=== PATIENT | female | born 1990 | race American Indian/Alaskan Native ===

== ENCOUNTER 2021-06-01 12:46 | Emergency (ER) | payer MEDICAID ==
[2021-06-01 13:07] VITALS: BP 140/85
--- NOTE | 2021-06-01 13:13 | Emergency Department Report ---
Blank Doc - Documentation Documentation: 30-year-old female that presents with chest pain, vaginal bleeding, and elevated BP. Stated is about 4 weeks but is not sure. 1- This is a initial triage assessment/medical screening only. Full assessment and work-up will be completed once the patient is in proper hospital gown, ED bed and in a private room setting. This initial assessment/diagnostic orders/clinical plan/ treatment(s) is/are subject to change based on pt's health status, clinical progression and re-assessment by fellow clinical providers in the ED. Further treatment and workup at subsequent clinical providers discretion. Patient/guardians urged not to elope from ED as their condition may be serious if not clinically assessed and managed. 2-cardiac workup 3-labs r/o
[2021-06-01 13:55] LABS: Basophils % (Auto) 0.3 % (0.0-1.8); Eosinophils # (Auto) 0.1 K/mm3 (0.0-0.4); Eosinophils % (Auto) 0.8 % (0.0-4.3); Lymphocytes # (Auto) 2.1 K/mm3 (1.2-5.4); Lymphocytes % (Auto) 25.3 % (13.4-35.0); Monocytes # (Auto) 0.4 K/mm3 (0.0-0.8); Monocytes % (Auto) 4.4 % (0.0-7.3)
[2021-06-01 13:58] LABS: Alanine Aminotransferase 18 units/L (7-56); Albumin 4.4 g/dL (3.9-5); Blood Urea Nitrogen 5 mg/dL (7-17); Calcium 9.1 mg/dL (8.4-10.2); Hemolysis Index 4
[2021-06-01 14:03] LABS: BUN/Creatinine Ratio 13
[2021-06-01 14:11] LABS: Hematocrit 36.8 % (30.3-42.9); Mean Corpuscular HGB Conc 33 % (30-34); Mean Corpuscular Volume 72 fl (79-97); Platelet Count 399 K/mm3 (140-440); Red Blood Count 5.12 M/mm3 (3.65-5.03); Red Cell Distribution Width 15.8 % (13.2-15.2)
[2021-06-01 14:30] LABS: INR 0.95 (0.87-1.13)
[2021-06-01 14:31] LABS: Partial Thromboplastin Time 33.1 Sec. (24.2-36.6)
--- NOTE | 2021-06-01 15:45 | XRay Report ---
XR chest routine 2V INDICATION / CLINICAL INFORMATION: Chest Pain. COMPARISON: None available. FINDINGS: SUPPORT DEVICES: None. HEART /PULMONARY VASCULATURE: No significant abnormality. LUNGS / PLEURA: No significant pulmonary or pleural abnormality. No pneumothorax. ADDITIONAL FINDINGS: No significant additional findings. IMPRESSION: 1. No acute findings. Signer Name: Travis Vargas MD Signed: 06/01/2021 3:40 PM Workstation Name: [id number]
[2021-06-01 16:19] LABS: Bilirubin,Urine NEG (Negative); Blood,Urine MOD (Negative); Color,Urine Yellow (Yellow); Mucus,Urine FEW /HPF; Protein,Urine <15 mg/dL mg/dL (Negative); Urobilinogen,Urine < 2.0 mg/dL (<2.0)
--- NOTE | 2021-06-01 16:25 | Emergency Department Report ---
ED Chest Pain HPI - General Chief Complaint: Chest Pain Stated Complaint: CHEST PAIN, ELEVATED BP Time Seen by Provider: 06/01/21 13:12 Source: patient Mode of arrival: Ambulatory Limitations: No Limitations - History of Present Illness Initial Comments: This is a 30-year-old female nontoxic, well nourished in appearance, no acute signs of distress presents to the ED with 2 complaints: 1) c/o of mid sternum intermittent chest pain that occurred only on one occasion. Patient also stated was told that she has high blood pressure. Patient denies any radiation of pain. Currently patient denies any chest pain. Patient describes pain as burning sensation intermittently. Patient denies any upper respiratory symptoms. Patient denies any shortness of breath, hemoptysis, fever, chills, nausea, vomiting, headache, stiff neck, numbness, tingling, a bdominal pain. Patient denies pleuritic chest pain. Patient denies any recent travels or long car rides. Patient denies any recent surgeries or any sick contacts. Patient denies any drug allergies. 2) vaginal bleeding that occurred last night. Patient stated she took 3 test that was positive several days ago. Patient otherwise denies any pelvic pain or abdominal pain. Stated she believes she is about 4 to 5 weeks . Patient denies any vaginal discharge or foul odor. Patient denies any nausea, vomiting, chest pain, shortness of breathe, fever, chills, headache, stiff neck, numbness, tingling. Patient denies any urinary symptoms. MD Complaint: chest pain -: days(s) Pain Radiation: none Severity: mild Severity scale (0 -10): 3 Consistency: now resolved Improves With: nothing Worsens With: nothing Other Symptoms: denies: cough, fever, syncope, rash, acid taste in mouth, leg swelling, palpitations, burping Treatments Prior to Arrival: none Aspirin use within the Past 7 Days: (0) No - Related Data On Oral Contraceptives: No Previous Rx's Medication Instructions Recorded Last Taken Type Amoxicillin [Trimox CAP] 500 mg PO Q8H #30 capsule 03/11/14 Unknown Rx Allergies Allergy/AdvReac Type Severity Reaction Status Date / Time No Known Allergies Allergy Verified 03/11/14 13:08 Heart Score - HEART Score History: Slightly suspicious EKG: Normal Age: < 45 Risk factors: No known risk factors Troponin: < normal limit HEART Score: 0 - EKG Read Time Time EKG Completed: 12:57 EKG Read Time: 13:00 (by Dr. Lagunas) - Critical Actions Critical Actions: 0-3 pts:0.9-1.7%risk of adverse cardiac event.Candidate for discharge ED Review of Systems ROS: Stated complaint: CHEST PAIN, ELEVATED BP Other details as noted in HPI Comment: All other systems reviewed and negative Constitutional: denies: chills, fever Eyes: denies: eye pain, eye discharge, vision change ENT: denies: ear pain, throat pain Respiratory: denies: cough, orthopnea, shortness of breath, SOB with exertion, SOB at rest, wheezing Cardiovascular: chest pain. denies: palpitations, dyspnea on exertion, orthopnea, edema, syncope, paroxysmal nocturnal dyspnea Endocrine: no symptoms reported Gastrointestinal: denies: abdominal pain, nausea, diarrhea Genitourinary: abnormal menses. denies: urgency, dysuria, discharge Musculoskeletal: denies: back pain, joint swelling, arthralgia Skin: denies: rash, lesions Neurological: denies: headache, weakness, paresthesias Psychiatric: denies: anxiety, depression Hematological/Lymphatic: denies: easy bleeding, easy bruising ED Past Medical Hx - Past Medical History Previous Medical History?: No - Surgical History Past Surgical History?: Yes Additional Surgical History: L knee surgery, faciotomy, "nodule"removed from both arms - Social History Smoking Status: Never Smoker Substance Use Type: Alcohol - Medications Home Medications: Home Medications Medication Instructions Recorded Confirmed Last Taken Type Amoxicillin [Trimox CAP] 500 mg PO Q8H #30 capsule 03/11/14 Unknown Rx ED Physical Exam - General Limitations: No Limitations General appearance: alert, in no apparent distress - Head Head exam: Present: atraumatic, normocephalic - Eye Eye exam: Present: normal appearance - ENT ENT exam: Present: normal exam, normal orophraynx - Neck Neck exam: Present: normal inspection, full ROM. Absent: tenderness, meningismus, lymphadenopathy - Respiratory Respiratory exam: Present: normal lung sounds bilaterally. Absent: respiratory distress, wheezes, rales, rhonchi, stridor, chest wall tenderness, accessory muscle use, decreased breath sounds, prolonged expiratory - Cardiovascular Cardiovascular Exam: Present: regular rate, normal rhythm, normal heart sounds. Absent: bradycardia, tachycardia, irregular rhythm, systolic murmur, diastolic murmur, rubs, gallop - GI/Abdominal GI/Abdominal exam: Present: soft, normal bowel sounds. Absent: distended, tenderness, guarding, rebound, rigid, diminished bowel sounds - Extremities Exam Extremities exam: Present: normal inspection, full ROM - Back Exam Back exam: Present: normal inspection, full ROM. Absent: tenderness, CVA tenderness (R), CVA tenderness (L), muscle spasm, paraspinal tenderness, vertebral tenderness, rash noted - Neurological Exam Neurological exam: Present: alert, oriented X3, normal gait - Psychiatric Psychiatric exam: Present: normal affect, normal mood - Skin Skin exam: Present: warm, dry, intact, normal color. Absent: rash ED Course Vital Signs 06/01/21 06/01/21 13:05 13:06 Temperature 98.9 F Pulse Rate 78 Respiratory 16 Rate Blood Pressure 140/85 O2 Sat by Pulse 100 Oximetry - Reevaluation(s) Reevaluation #1: 06/01/21 16:25 Patient is speaking in full sentences with no signs of distress noted. KWASI score - Kwasi Score Age > 65: (0) No Aspirin use within the Past 7 Days: (0) No 3 or more CAD Risk Factors: (0) No 2 or more Angina events in past 24 hrs: (0) No Known CAD with more than 50% Stenosis: (0) No Elevated Cardiac Markers: (0) No ST Deviation Greater than 0.5mm: (0) No KWASI Score: 0 ED Medical Decision Making - Lab Data Result diagrams: 06/01/21 13:17 06/01/21 13:17 Lab Results 06/01/21 06/01/21 06/01/21 Range/Units 13:17 13:17 13:17 WBC 8.4 (4.5-11.0) K/mm3 RBC 5.12 H (3.65-5.03) M/mm3 Hgb 12.0 (10.1-14.3) gm/dl Hct 36.8 (30.3-42.9) % MCV 72 L (79-97) fl MCH 24 L (28-32) pg MCHC 33 (30-34) % RDW 15.8 H (13.2-15.2) % Plt Count 399 (140-440) K/mm3 Lymph % (Auto) 25.3 (13.4-35.0) % Deuel % (Auto) 4.4 (0.0-7.3) % Eos % (Auto) 0.8 (0.0-4.3) % Baso % (Auto) 0.3 (0.0-1.8) % Lymph # (Auto) 2.1 (1.2-5.4) K/mm3 Deuel # (Auto) 0.4 (0.0-0.8) K/mm3 Eos # (Auto) 0.1 (0.0-0.4) K/mm3 Baso # (Auto) 0.0 (0.0-0.1) K/mm3 Seg Neutrophils % 69.2 (40.0-70.0) % Seg Neutrophils # 5.8 (1.8-7.7) K/mm3 PT 13.3 (12.2-14.9) Sec. INR 0.95 (0.87-1.13) APTT 33.1 (24.2-36.6) Sec. Sodium 138 (137-145) mmol/L Potassium 3.8 (3.6-5.0) mmol/L Chloride 104.0 (98-107) mmol/L Carbon Dioxide 23 (22-30) mmol/L Anion Gap 15 mmol/L BUN 5 L (7-17) mg/dL Creatinine 0.4 L (0.6-1.2) mg/dL Estimated GFR > 60 ml/min BUN/Creatinine Ratio 13 % Glucose 106 H (65-100) mg/dL Calcium 9.1 (8.4-10.2) mg/dL Total Bilirubin 0.50 (0.1-1.2) mg/dL AST 18 (5-40) units/L ALT 18 (7-56) units/L Alkaline Phosphatase 62 (35-129) units/L Troponin T < 0.010 (0.00-0.029) ng/mL Total Protein 7.1 (6.3-8.2) g/dL Albumin 4.4 (3.9-5) g/dL Albumin/Globulin Ratio 1.6 % HCG, Quant (0-4) mIU/mL Urine Bilirubin (Negative) Urine RBC (Auto) (0.0-6.0) /HPF U Epithel Cells (Auto) (0-13.0) /HPF Blood Type 06/01/21 06/01/21 06/01/21 Range/Units 13:17 13:17 14:27 WBC (4.5-11.0) K/mm3 RBC (3.65-5.03) M/mm3 Hgb (10.1-14.3) gm/dl Hct (30.3-42.9) % MCV (79-97) fl MCH (28-32) pg MCHC (30-34) % RDW (13.2-15.2) % Plt Count (140-440) K/mm3 Lymph % (Auto) (13.4-35.0) % Deuel % (Auto) (0.0-7.3) % Eos % (Auto) (0.0-4.3) % Baso % (Auto) (0.0-1.8) % Lymph # (Auto) (1.2-5.4) K/mm3 Deuel # (Auto) (0.0-0.8) K/mm3 Eos # (Auto) (0.0-0.4) K/mm3 Baso # (Auto) (0.0-0.1) K/mm3 Seg Neutrophils % (40.0-70.0) % Seg Neutrophils # (1.8-7.7) K/mm3 PT (12.2-14.9) Sec. INR (0.87-1.13) APTT (24.2-36.6) Sec. Sodium (137-145) mmol/L Potassium (3.6-5.0) mmol/L Chloride (98-107) mmol/L Carbon Dioxide (22-30) mmol/L Anion Gap mmol/L BUN (7-17) mg/dL Creatinine (0.6-1.2) mg/dL Estimated GFR ml/min BUN/Creatinine Ratio % Glucose (65-100) mg/dL Calcium (8.4-10.2) mg/dL Total Bilirubin (0.1-1.2) mg/dL AST (5-40) units/L ALT (7-56) units/L Alkaline Phosphatase (35-129) units/L Troponin T < 0.010 (0.00-0.029) ng/mL Total Protein (6.3-8.2) g/dL Albumin (3.9-5) g/dL Albumin/Globulin Ratio % HCG, Quant < 2 (0-4) mIU/mL Urine Bilirubin (Negative) Urine RBC (Auto) (0.0-6.0) /HPF U Epithel Cells (Auto) (0-13.0) /HPF Blood Type A POSITIVE 06/01/21 Range/Units Unknown WBC (4.5-11.0) K/mm3 RBC (3.65-5.03) M/mm3 Hgb (10.1-14.3) gm/dl Hct (30.3-42.9) % MCV (79-97) fl MCH (28-32) pg MCHC (30-34) % RDW (13.2-15.2) % Plt Count (140-440) K/mm3 Lymph % (Auto) (13.4-35.0) % Deuel % (Auto) (0.0-7.3) % Eos % (Auto) (0.0-4.3) % Baso % (Auto) (0.0-1.8) % Lymph # (Auto) (1.2-5.4) K/mm3 Deuel # (Auto) (0.0-0.8) K/mm3 Eos # (Auto) (0.0-0.4) K/mm3 Baso # (Auto) (0.0-0.1) K/mm3 Seg Neutrophils % (40.0-70.0) % Seg Neutrophils # (1.8-7.7) K/mm3 PT (12.2-14.9) Sec. INR (0.87-1.13) APTT (24.2-36.6) Sec. Sodium (137-145) mmol/L Potassium (3.6-5.0) mmol/L Chloride (98-107) mmol/L Carbon Dioxide (22-30) mmol/L Anion Gap mmol/L BUN (7-17) mg/dL Creatinine (0.6-1.2) mg/dL Estimated GFR ml/min BUN/Creatinine Ratio % Glucose (65-100) mg/dL Calcium (8.4-10.2) mg/dL Total Bilirubin (0.1-1.2) mg/dL AST (5-40) units/L ALT (7-56) units/L Alkaline Phosphatase (35-129) units/L Troponin T (0.00-0.029) ng/mL Total Protein (6.3-8.2) g/dL Albumin (3.9-5) g/dL Albumin/Globulin Ratio % HCG, Quant (0-4) mIU/mL Urine Bilirubin Neg (Negative) Urine RBC (Auto) 1.0 (0.0-6.0) /HPF U Epithel Cells (Auto) 1.0 (0-13.0) /HPF Blood Type - Radiology Data [facility] [address] [place] [address] XRay Report Signed Patient: AMRIK HUDDLESTON MR#: [id number] : 1990 Acct:[id number] Age/Sex: 30 / F ADM Date: 06/01/21 Loc: ED Attending Dr: Ordering Physician: YOLANDE CHOI NP Date of Service: 06/01/21 Procedure(s): XR chest routine 2V Accession Number(s): [id number] cc: YOLANDE CHOI NP Fluoro Time In Minutes: XR chest routine 2V INDICATION / CLINICAL INFORMATION: Chest Pain. COMPARISON: None available. FINDINGS: SUPPORT DEVICES: None. HEART /PULMONARY VASCULATURE: No significant abnormality. LUNGS / PLEURA: No significant pulmonary or pleural abnormality. No pneumothorax. ADDITIONAL FINDINGS: No significant additional findings. IMPRESSION: 1. No acute findings. Signer Name: Akira Vargas MD Signed: 06/01/2021 3:40 PM Workstation Name: [id number] Transcribed By: JS Dictated By: AKIRA VARGAS MD Electronically Authenticated By: AKIRA VARGAS MD Signed Date/Time: 06/01/211539 DD/ 39 TD/TT: - Medical Decision Making This is a 30-year-old female that presents with nonspecific chest pain and abnormal menstrual cycle. Patient is stable and was examined by me. KWASI and HEART score 0 pints. PERC score for DVT/SVT/PE 0 points. EKG normal sinus rhythm with no significant changes in ST. patient left AGAINST MEDICAL ADVICE without telling anybody for a repeat EKG and reexamining the patient. Patient was not notified of the results of labs, imaging studies or UA. UA is currently still pending. Negative troponin. RN was notified to contact patient back to return as soon as possible for further evaluation and possible treatment. Critical care attestation.: If time is entered above; I have spent that time in minutes in the direct care of this critically ill patient, excluding procedure time. ED Disposition Clinical Impression: Nonspecific chest pain, Abnormal menstrual cycle Disposition: LEFT AGAINST MED ADVICE Is pt being admited?: No Does the pt Need Aspirin: No Condition: Undetermined Instructions: Nonspecific Chest Pain, Adult
--- NOTE | 2021-06-01 18:09 | Electrocardiograph Report ---
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
== END 2021-06-01 16:35 | disposition left against medical advice (07) ==
LOC: ED 12:46
DX: R07.89 Other chest pain (principal); N92.6 Irregular menstruation, unspecified; Z98.890 Other specified postprocedural states; Z79.2 Long term (current) use of antibiotics
CPT/HCPCS: 36415; 71046; 80053; 81001; 84484; 84702; 85025; 85610; 85730; 86900; 86901; 93005

== ENCOUNTER 2022-02-13 07:26 | Emergency (ER) | payer MEDICAID ==
[2022-02-13] MEDS ORDERED: FAMOTIDINE 20 MG TAB PO ONE (07:51)
[2022-02-13] MEDS ORDERED: diphenhydrAMINE 25 MG CAP PO ONE (07:51)
[2022-02-13] MEDS ORDERED: methylPREDNISolone Sod Succinate 125 MG/2 ML INJ IM ONE (07:51)
--- NOTE | 2022-02-13 08:37 | Emergency Department Report ---
HPI - General Chief Complaint: Allergic Reaction Time Seen by Provider: 02/13/22 07:50 - HPI HPI: 31-year-old black female with no past medical history presents to the emergency department for evaluation of possible allergic reaction. She states that she was seen at urgent care yesterday and was prescribed Flagyl, Diflucan, and an antibiotic for urinary tract infection, and she took her first doses yesterday around 6 PM. She states that a couple hours later she started to have tingling in her lips followed by swelling to the lips and tingling in her throat. She states that she took 1 Benadryl and thought that she was feeling better, but when she woke up this morning she had increased swelling to the lips with some shortness of breath. She decided to come to the emergency department for further evaluation. She denies chest tightness at this time. ED Past Medical Hx - Surgical History Additional Surgical History: L knee surgery, faciotomy, "nodule"removed from both arms - Social History Smoking Status: Never Smoker Substance Use Type: Alcohol - Medications Home Medications: Home Medications Medication Instructions Recorded Confirmed Last Taken Type Amoxicillin [Trimox CAP] 500 mg PO Q8H #30 capsule 03/11/14 Unknown Rx EPINEPHrine [Epipen] 0.3 mg IJ ONCE PRN #1 pack 02/13/22 Unknown Rx Famotidine [Pepcid] 20 mg PO BID #10 tablet 02/13/22 Unknown Rx Prednisone [predniSONE 10 mg 10 mg PO .TAPER #1 pack 02/13/22 Unknown Rx (6-Day Pack, 21 Tabs)] hydrOXYzine PAMOATE [Vistaril] 25 mg PO TID PRN #21 cap 02/13/22 Unknown Rx ED Review of Systems ROS: Stated complaint: ALLERGIC REACTION Other details as noted in HPI Comment: All other systems reviewed and negative Constitutional: denies: chills, fever Eyes: denies: vision change ENT: denies: throat pain, congestion Respiratory: shortness of breath. denies: SOB with exertion, SOB at rest Cardiovascular: denies: chest pain, palpitations, dyspnea on exertion Gastrointestinal: denies: abdominal pain, nausea, vomiting Musculoskeletal: denies: back pain Skin: denies: rash Neurological: denies: headache Physical Exam - Physical Exam Vital Signs: Vital Signs 02/13/22 07:36 Temperature 98.6 F Pulse Rate 82 Respiratory 16 Rate Blood Pressure 138/88 [Left] O2 Sat by Pulse 100 Oximetry ED Course Vital Signs 02/13/22 07:36 Temperature 98.6 F Pulse Rate 82 Respiratory 16 Rate Blood Pressure 138/88 [Left] O2 Sat by Pulse 100 Oximetry - Reevaluation(s) Reevaluation #1: 02/13/22 08:35 Lip swelling mildly improved. ED Medical Decision Making - Medical Decision Making 31-year-old black female with no past medical history presents to the emergency department for evaluation of possible allergic reaction. She states that she was seen at urgent care yesterday and was prescribed Flagyl, Diflucan, and an antibiotic for urinary tract infection, and she took her first doses yesterday around 6 PM. She states that a couple hours later she started to have tingling in her lips followed by swelling to the lips and tingling in her throat. She states that she took 1 Benadryl and thought that she was feeling better, but when she woke up this morning she had increased swelling to the lips with some shortness of breath. She decided to come to the emergency department for further evaluation. She denies chest tightness at this time. Facial swelling mildly improved after medication. Patient was advised to stop medications and list his allergies. She will be treated with 6-day course of prednisone along with Pepcid for 5 days, Vistaril to use as needed for itching, and EpiPen as needed for anaphylactic's. She will be given referral to assignment clerk to follow-up with for further evaluation and management. She verbalized understanding of and agreement with plan of care. Critical care attestation.: If time is entered above; I have spent that time in minutes in the direct care of this critically ill patient, excluding procedure time. ED Disposition Clinical Impression: Allergic reaction Qualifiers: Encounter type: initial encounter Qualified Code(s): T78.40XA - Allergy, unspecified, initial encounter Disposition: 01 HOME / SELF CARE / HOMELESS Is pt being admited?: No Does the pt Need Aspirin: No Condition: Stable Instructions: Allergies, Adult, [id number], How to Use an Auto-Injector Pen, Drug Allergy, [id number] Additional Instructions: Take medication as prescribed. Follow-up with assignment clerk for further evaluation and management. Return to the emergency department for any concerning symptoms. Prescriptions: EPINEPHrine [Epipen] 0.3 mg IJ ONCE PRN #1 pack PRN Reason: Anaphylaxis Famotidine [Pepcid] 20 mg PO BID #10 tablet Prednisone [predniSONE 10 mg (6-Day Pack, 21 Tabs)] 10 mg PO .TAPER #1 pack hydrOXYzine PAMOATE [Vistaril] 25 mg PO TID PRN #21 cap PRN Reason: Itching Referrals: RYAN AJ MD [Staff Physician] - 3-5 Days Forms: Work/School Release Form(ED) Time of Disposition: 08:42 ED General adult EXAM - General General appearance: alert, in no apparent distress Limitations: No Limitations - Head Head exam: Positive: atraumatic, normocephalic. Negative: normal inspection (Swelling to both upper and lower lips noted) - Eye Eye exam: normal appearance - ENT ENT exam: Positive: mucous membranes moist. Negative: normal orophraynx (Erythema noted to posterior oropharynx) - Neck Neck exam: Positive: normal inspection. Negative: tenderness, lymphadenopathy - Respiratory Respiratory exam: Positive: normal lung sounds bilaterally. Negative: respiratory distress, wheezes, rales, rhonchi, stridor, chest wall tenderness, accessory muscle use - Cardiovascular Cardiovascular Exam: Positive: regular rate, normal heart sounds - GI/Abdominal GI/Abdominal exam: Positive: soft, normal bowel sounds. Negative: distended, tenderness, guarding, rebound, rigid - Extremities Extremities exam: Positive: normal inspection - Back Back exam: normal inspection. denies: tenderness, CVA tenderness (R), CVA tenderness (L) - Neurological Neurological exam: Positive: alert, oriented X3, normal gait - Psychiatric Psychiatric exam: Positive: normal affect, normal mood - Skin Skin exam: Positive: warm, dry, intact, normal color
[2022-02-13 09:00] VITALS: BP 136/78
== END 2022-02-13 08:59 | disposition home or self-care (01) ==
LOC: ED 07:26
DX: T78.40XA Allergy, unspecified, initial encounter (principal); Z98.890 Other specified postprocedural states; X58.XXXA Exposure to other specified factors, initial encounter
CPT/HCPCS: 96372; 99282; J2930